=== PATIENT | male | born 1975 | race Caucasian/White ===

== ENCOUNTER 2017-06-05 12:44 | Observation (INO) | payer BC, OTHER ==
[~2017-06-05] VITALS: Ht 182.9 cm; Wt 142.0 kg
[2017-06-05] MEDS ORDERED: ASPIRIN 81 MG CHEW TAB PO ONE ×2 (13:00→14:45)
[2017-06-05 13:10] LABS: BASOPHILS # (AUTO) 0.1 (0.0-0.1); BASOPHILS % 0.4 % (0.0-1.0); EOSINOPHILS # (AUTO) 0.6 (0.0-0.4); EOSINOPHILS % 4.9 % (0.0-6.0); HEMATOCRIT 42.9 % (38.2-49.6); HEMOGLOBIN 14.3 g/dL (14.0-18.0); LYMPHOCYTES % 17.5 % (18.0-39.1); MEAN CORPUSCULAR HEMOGLOBIN 29.1 pg (28-32); MEAN CORPUSCULAR HGB CONC 33.3 g/dL (31-35); MEAN CORPUSCULAR VOLUME 87.2 fL (81-99); MONOCYTES # (AUTO) 0.7 (0.2-0.8); MONOCYTES % 6.3 % (4.4-11.3); NEUTROPHILS % 70.5 % (38.7-80.0); PLATELET COUNT 259 x10e3/uL (140-360); RED BLOOD COUNT 4.92 x10e6/uL (4.3-5.7); RED CELL DISTRIBUTION WIDTH 13.2 % (11.7-14.4)
[2017-06-05 13:16] LABS: INR 1.07; PROTHROMBIN TIME 13.1 seconds (11.9-14.5)
[2017-06-05 13:17] LABS: PARTIAL THROMBOPLASTIN TIME 28.3 seconds (23.8-35.5)
--- NOTE | 2017-06-05 13:17 | Diagnostic Imaging Report ---
PROCEDURE: CHEST SINGLE (PORTABLE) COMPARISON: None. INDICATIONS: CENTER CHEST PAIN SINCE MONDAY FINDINGS: Lungs are well-inflated. No gross consolidation, pleural effusion, or pneumothorax. Cardiomediastinal contour and pulmonary vasculature are within normal limits when accounting for portable, AP technique. No acute osseous abnormality. CONCLUSION: No acute thoracic abnormality. Dictated by: Rommel Parekh M.D. on 06/05/2017 at 13:19 Electronically approved by: Rommel Parekh M.D. on 06/05/2017 at 13:19
[2017-06-05 13:28] LABS: ALANINE AMINOTRANSFERASE 31 IU/L (0-55); ALBUMIN 3.9 g/dL (3.5-5.0); ALKALINE PHOSPHATASE 76 IU/L (40-150); AMYLASE 36 U/L (25-125); ANION GAP 15.4 mmol/L (8-16); BLOOD UREA NITROGEN 15 mg/dL (7-26); BUN/CREATININE RATIO 14 (6-25); CALCIUM 11.6 mg/dL (8.4-10.2); CARBON DIOXIDE 29 mmol/L (22-29); CHLORIDE 102 mmol/L (98-107); CREATINE KINASE 242 IU/L (30-200); EST GLOMERULAR FILTRATION RATE > 60 ML/MIN (60-); GLUCOSE 150 mg/dL (74-118); LIPASE 20 U/L (8-78); MAGNESIUM 1.8 MG/DL (1.3-2.1); POTASSIUM 4.4 mmol/L (3.5-5.1); SODIUM 142 mmol/L (136-145)
[2017-06-05] MEDS ORDERED: MAGNESIUM/ALUMINUM/SIMETHICONE 30 ML UDC PO ONE (13:45)
[2017-06-05] MEDS ORDERED: LIDOCAINE VISC 2% SOLN 15 ML UDC PO ONE (13:45)
[2017-06-05 13:47] LABS: THYROID STIMULATING HORMONE 3.588 uIU/mL (0.350-4.940)
[2017-06-05] MEDS ORDERED: BELLADONNA ALK/PHENOBARBITAL 5 ML UDC PO ONE (14:00)
[2017-06-05] MEDS ORDERED: LOSARTAN POTASSIUM 100 MG TAB PO SCH (14:15)
[2017-06-05] MEDS ORDERED: PROMETHAZINE HCL (IM) 25 MG/ML VIAL IV PRN (14:45)
[2017-06-05] MEDS ORDERED: NITROGLYCERIN 0.4 MG SUBL SL PRN (14:45)
[2017-06-05] MEDS ORDERED: ONDANSETRON HCL INJ 2 MG/ML VIAL IV PRN (14:45)
[2017-06-05] MEDS ORDERED: DEXTROSE 50% SYRINGE 50 ML IV PRN (14:45)
[2017-06-05] MEDS ORDERED: PROMETHAZINE 12.5MG/ NACL 0.9% 50 ML IV PRN (15:00)
[2017-06-05] MEDS ORDERED: ONDANSETRON HCL 4 MG ORAL DISINTEGRATING TAB PO PRN (15:00)
[2017-06-05] MEDS: INSULIN REGULAR, HUMAN 100 UNIT/1 ML 3ML VIAL SQ SCH ×2 (15:14→21:00)
[2017-06-05] MEDS: FAMOTIDINE 20 MG/2 ML VIAL IV SCH (15:27)
[2017-06-05] MEDS ORDERED: INDOMETHACIN25 MG PO (17:20)
[2017-06-05] MEDS ORDERED: AMLODIPINE BESY10 MG PO (17:20)
[2017-06-05] MEDS ORDERED: LOSARTAN POTASS25 MG PO (17:20)
[2017-06-05] MEDS ORDERED: METFORMIN HCL500 MG PO (17:20)
[2017-06-05] MEDS ORDERED: CRESTOR10 MG PO (17:20)
--- OUTSIDE RECORDS SUMMARY | 2017-06-05 20:16 | XMS REPORT ---
Author Author [facility] Address Unknown Phone Unavailable Care Team Providers Care [employer] Specialist Name Role Phone CAIO DYSON Unavailable Unavailable Problems This patient has no known problems. Allergies, Adverse Reactions, Alerts This patient has no known allergies or adverse reactions. Medications This patient has no known medications. Results Test Description Test Time Test Comments Text Results Atomic Results Result Comments CHEST SINGLE (PORTABLE) [place] [id number] Patient Name: LEO ART MR #: [id number] : 1975 Age/Sex: 41/M Req #: [id number] Adm Physician: Ordered by: [place] JEONG COURT ATTENDANT Report #: [id number] Location: ER Room/Bed: Procedure: [id number] DX/CHEST SINGLE (PORTABLE) Exam Date: 06/05/17 Exam Time: 1300 REPORT STATUS: Signed PROCEDURE: CHEST SINGLE (PORTABLE) COMPARISON: None. INDICATIONS: CENTER CHEST PAIN SINCE MONDAY FINDINGS: Lungs are well-inflated. No gross consolidation, pleural effusion, or pneumothorax. Cardiomediastinal contour and pulmonary vasculature are within normal limits when accounting for portable, AP technique. No acute osseous abnormality. CONCLUSION: No acute thoracic abnormality. Dictated by: Joe Sutton M.D. on 06/05/2017 at 13:19 Electronically approved by: Joe Sutton M.D. on 2017 at 13:19 Dictated By: JOE SUTTON MD [id number] Transcribed By: MARITZA on 06/05/17 131 COPY TO: MI JEONG NP
[2017-06-05 21:39] LABS: CREATINE KINASE 209 IU/L (30-200)
[2017-06-05 22:21] VITALS: BP 154/87
[2017-06-05 23:00] VITALS: BP 154/87
[2017-06-06] MEDS: FAMOTIDINE 20 MG/2 ML VIAL IV SCH ×2 (03:37→12:09)
[2017-06-06 04:00] VITALS: BP 138/80
[2017-06-06 06:42] LABS: BASOPHILS # (AUTO) 0.1 (0.0-0.1); BASOPHILS % 0.8 % (0.0-1.0); EOSINOPHILS # (AUTO) 0.7 (0.0-0.4); EOSINOPHILS % 6.6 % (0.0-6.0); HEMATOCRIT 40.6 % (38.2-49.6); HEMOGLOBIN 13.5 g/dL (14.0-18.0); LYMPHOCYTES # (AUTO) 2.5 (1.0-3.2); MEAN CORPUSCULAR HEMOGLOBIN 29.5 pg (28-32); MEAN CORPUSCULAR HGB CONC 33.3 g/dL (31-35); MEAN CORPUSCULAR VOLUME 88.8 fL (81-99); MONOCYTES % 9.8 % (4.4-11.3); NEUTROPHILS # (AUTO) 5.5 (2.1-6.9); NEUTROPHILS % 56.5 % (38.7-80.0); PLATELET COUNT 243 x10e3/uL (140-360); RED BLOOD COUNT 4.57 x10e6/uL (4.3-5.7); RED CELL DISTRIBUTION WIDTH 13.2 % (11.7-14.4)
[2017-06-06 07:11] LABS: ANION GAP 14.6 mmol/L (8-16); BLOOD UREA NITROGEN 20 mg/dL (7-26); BUN/CREATININE RATIO 18 (6-25); CALCIUM 9.8 mg/dL (8.4-10.2); CARBON DIOXIDE 29 mmol/L (22-29); CHLORIDE 102 mmol/L (98-107); CHOL/HDL RATIO 6.7 (3.9-4.7); CHOLESTEROL 249 MD/DL (0-199); CREATINE KINASE 176 IU/L (30-200); CREATININE, SERUM 1.13 mg/dL (0.72-1.25); EST GLOMERULAR FILTRATION RATE > 60 ML/MIN (60-); GLUCOSE 144 mg/dL (74-118); HDL CHOLESTEROL 37 MG/DL (40-60); LDL CHOLESTEROL 161 MG/DL (60-130); POTASSIUM 4.6 mmol/L (3.5-5.1); SODIUM 141 mmol/L (136-145); TRIGLYCERIDES 257 MG/DL (0-149)
[2017-06-06] MEDS: INSULIN REGULAR, HUMAN 100 UNIT/1 ML 3ML VIAL SQ SCH ×2 (07:30→11:30)
[2017-06-06 08:21] VITALS: BP 147/82
--- NOTE | 2017-06-06 08:57 | History and Physical ---
CHIEF COMPLAINT: Chest tightness associated with hot flashes and sweating for the last 2-3 days. HISTORY OF PRESENT ILLNESS: A 41-year-old pleasant white male with a past medical history as above was admitted at [facility] yesterday afternoon with the above complaints. The patient was seen in my office yesterday morning with the above complaints. As per the patient, since the last 2-3 days he started having chest tightness and pressure radiating to the throat and generalized weakness associated with episodes of sweating and hot flashes. Also, the patient complained of generalized weakness. Hence, the patient came to the office yesterday morning. In view of the patient's multiple risk factors of past medical history, I referred the patient for evaluation of chest pain to the hospital. In the emergency room, the patient was seen by the emergency room doctor and admitted for chest pain evaluation. At present, the patient is lying comfortably in bed. No apparent distress. No chest pain. No shortness of breath. No nausea, vomiting or diarrhea. No abdominal pain. No . Denies any hematemesis. Denies hematuria or dysuria. No fever. No cough. No witnessed seizures. PAST MEDICAL HISTORY 1. Hypertension. 2. Hyperlipidemia. 3. Diabetes mellitus, type 2. 4. Obstructive sleep apnea, on CPAP. 5. Abnormal LFTs. SOCIAL HISTORY: No smoking. No alcohol. No illicit drug use. and lives with family. ALLERGIES: NO KNOWN DRUG ALLERGIES. FAMILY HISTORY: Noncontributory. REVIEW OF SYSTEMS: As per HPI. PHYSICAL EXAMINATION GENERAL: The patient is alert, awake and oriented times 2. No apparent distress. Lying in bed. VITALS: Temperature is 97, pulse 70 per minute, respiratory rate 16 per minute, blood pressure 138/80, and saturation is 98% on room air. HEENT: No signs of icterus. No pallor. Normocephalic and atraumatic. NECK: Soft and supple. LUNGS: Air entry bilaterally. HEART: No gallop. ABDOMEN: Soft and nontender. Bowel sounds present. ELEVATOR RUNNER: Alert and oriented times 3. No focal deficit. EXTREMITIES: No cyanosis. No clubbing. No edema present. No calf pain. LABS: This morning white count is 9.7, hemoglobin 13.5, hematocrit 40.6, and platelets 243,000. Sodium 141, potassium 4.6, chloride 102, bicarb 29, BUN 20, creatinine 1.13, glucose 144. LFTs noted. Cardiac enzymes times 3 negative. LDL 161, cholesterol 249, triglycerides 257. Amylase 36, lipase 20. TSH 3.58. Chest x-ray with no acute thoracic abnormality. ASSESSMENT 1. Chest pain. 2. History of hypertension. 3. Diabetes mellitus. 4. Obstructive sleep apnea. PLAN: Admit the patient to med/tele. Cardiology consultation with Dr. Cisse for cardiac workup in view of the patient's multiple risk factors. Rule out ischemic heart disease. Once cleared by military lawyer, will send the patient home. Further care and diagnostic workup while the patient is in the hospital. Discussed with the patient's in detail. Job#: [id number] RAEANN
[2017-06-06] MEDS ORDERED: AMLODIPINE BESYLATE 10 MG TAB PO SCH (09:00)
[2017-06-06] MEDS ORDERED: LOSARTAN POTASSIUM 25 MG TAB PO SCH (09:00)
--- NOTE | 2017-06-06 10:03 | Consultation ---
DATE OF CONSULTATION: June 06, 2017 CARDIOLOGY CONSULTATION REASON FOR CONSULTATION: Chest pain. HISTORY OF PRESENT ILLNESS: This is a 41-year-old man with a history of hypertension, hyperlipidemia and diabetes mellitus, who presents with complaints of chest pain. The patient reports he was in his usual state of health until Monday morning when he woke up and noted a fist-like sensation in his chest. The pain was 6/10 in severity and associated with diaphoresis. There was no shortness of breath or nausea. He notes the pain worsened with eating, and would radiate up his chest. Due to these complaints, he presented to Dr. Riley's office yesterday, and was referred to [facility] ER. He denies any edema, orthopnea, PND, lightheadedness, or syncope. He does not exercise. REVIEW OF SYSTEMS: Negative except as per HPI. PAST MEDICAL HISTORY: Hypertension, hyperlipidemia, diabetes mellitus, NORMA, on CPAP, abnormal LFTs. PAST SURGICAL HISTORY: Kidney surgery as a child. ALLERGIES: NO KNOWN DRUG ALLERGIES. MEDICATIONS: Please see EMR. SOCIAL HISTORY: He smokes tobacco and drinks alcohol occasionally. He denies any illicit drugs and works as a retail bakery manager. FAMILY HISTORY: Pertinent for father with 3-vessel CABG, as well as congestive heart failure. PHYSICAL EXAMINATION VITALS: Temperature 97.3 degrees, pulse 76, respiratory rate 18, blood pressure 147/82, oxygen saturation 94% on room air. GENERAL: Obese gentleman in no acute distress. Well-developed, well-nourished. HEENT: Normocephalic and atraumatic. Pupils equal. No scleral icterus. NECK: Supple. No thyromegaly or cervical lymphadenopathy. No carotid bruits. LUNGS: Clear to auscultation bilaterally. No wheezes or crackles. CARDIOVASCULAR: Normal rate. Regular rhythm. No murmur. Normal S1 and S2. ABDOMEN: Soft and nontender. EXTREMITIES: No edema. NEURO: Nonfocal exam. LABS: WBC 9.78, hemoglobin 13.5, hematocrit 40.6, and platelets 243,000. Sodium 141, potassium 4.6, chloride 102, CO2 29, BUN 20, creatinine 1.13. Troponin less than 0.001. BNP less than 10. Cholesterol 249, triglycerides 257, LDL 161, HDL 37. AST 16, ALT 31. Chest x-ray with no acute thoracic abnormality. EKG is normal sinus rhythm and normal ECG. IMPRESSION 1. Chest pain. 2. Hypertension. 3. Diabetes mellitus. 4. Hyperlipidemia. 5. Obstructive sleep apnea, on CPAP. RECOMMENDATIONS: The patient ruled out for myocardial infarction with serial cardiac biomarkers. We will obtain echocardiogram. The patient's blood pressure is above goal. We will increase his losartan. Given the patient's multiple risk factors, he warrants ischemic evaluation. This will need to be done in the office due to technical difficulties with the stress machine at the hospital at this time. Thank you for this consult. We will continue to follow. Job#: [id number] RAEANN
[2017-06-06 11:57] VITALS: BP 157/92
[2017-06-06 12:19] LABS: BILIRUBIN,URINE NEGATIVE (NEGATIVE); CLARITY,URINE SL CLOUDY (CLEAR); COLOR,URINE YELLOW (YELLOW); KETONES,URINE NEGATIVE (NEGATIVE); LEUKOCYTE ESTERASE ,URINE NEGATIVE (NEGATIVE); NITRITE,URINE NEGATIVE (NEGATIVE); PROTEIN,URINE DIPSTICK NEGATIVE (NEGATIVE); URINE UROBILINOGEN 0.2 mg/dL (0.2 - 1)
[2017-06-06 12:35] LABS: AMORPHOUS SEDIMENT,URINE MODERATE (FEW); BACTERIA,URINE RARE /HPF; EPITHELIAL CELLS,URINE RARE /LPF; RBC,URINE 0-5 /HPF (0-5); WBC,URINE (MAN) 0-5 /HPF (0-5)
[2017-06-06] MEDS ORDERED: CRESTOR 10MG PO SCH (21:00)
== END 2017-06-06 15:31 | disposition home or self-care (01) ==
LOC: ER 12:44 → EDBEDREQSVC 19:31 → EDBEDREQ 19:31 → ERHOLD 20:13 → IMCU 21:45
PROVIDERS: ADMIT Internal Medicine; ATTEND Internal Medicine
DX: R07.9 Chest pain, unspecified (principal); I10 Essential (primary) hypertension; E11.9 Type 2 diabetes mellitus without complications; G47.33 Obstructive sleep apnea (adult) (pediatric); E78.5 Hyperlipidemia, unspecified
CPT/HCPCS: 36415 ×2; 71045; 80048; 80053; 80061; 81001; 82150; 82550 ×2; 82553 ×2; 82948; 83690; 83735; 83880; 84443; 84484 ×2; 85025 ×2; 85610; 85730; 87086; 87186; 93005; 93306; 99283; G0378 ×2